=== PATIENT | male | born 1975 | race Caucasian/White ===

== ENCOUNTER 2023-01-21 08:24 | Outpatient (CLI) | payer OTHER, SELFPAY ==
--- NOTE | 2023-01-21 08:01 | W.ANESCHARGE ---
Anesthesia Charges Start Date/Time Anesthesia Start Date: 01/21/23 Anesthesia Start Time: 09:33 Stop Date/Time Anesthesia Stop Date: 01/21/23 Anesthesia Stop Time: 10:22
--- NOTE | 2023-01-21 10:27 | W.ANESCHARGE ---
Anesthesia Charges Start Date/Time Anesthesia Start Date: 01/21/23 Anesthesia Start Time: 09:33 Stop Date/Time Anesthesia Stop Date: 01/21/23 Anesthesia Stop Time: 10:22
== END 2023-01-21 08:25 | disposition home or self-care (01) ==
PROVIDERS: PCP Student in an Organized Health Care Education/Training Program; Visit Provider Internal Medicine Gastroenterology
DX: D50.9 Iron deficiency anemia, unspecified (principal); K62.1 Rectal polyp; Z98.0 Intestinal bypass and anastomosis status
CPT/HCPCS: 00813; 43239; 45385; 88305; J2704

== ENCOUNTER 2024-06-10 20:03 | Outpatient (CLI) | payer OTHER, SELFPAY | END 2024-06-10 20:04 | disposition home or self-care (01) | LOC: AMB 06-24 18:30 | PROVIDERS: PCP Student in an Organized Health Care Education/Training Program; Visit Provider Emergency Medicine | DX: R55 Syncope and collapse (principal); R41.82 Altered mental status, unspecified | CPT/HCPCS: A0425; A0427 ==

== ENCOUNTER 2024-06-10 20:37 | Observation (INO) | payer OTHER, SELFPAY ==
[2024-06-10] VITALS (15 sets, daily range): BP systolic 90–128; BP diastolic 47–83; PULSE 67–99; RESP 15–20; TEMP 36.6; O2SAT 91–97
--- NOTE | 2024-06-10 20:39 | CRLHL7_ITS ---
For Patients: As a result of the Century Cures Act, medical imaging exams and procedure reports are released immediately into your electronic medical record. You may view this report before your referring provider. If you have questions, please contact your health care provider. INDICATION: Unresponsive, disoriented, slurred speech. TECHNIQUE: CT head without contrast. COMPARISON: None. FINDINGS: Cerebral parenchyma: No evidence of acute territorial infarct. No acute intraparenchymal hemorrhage. No significant mass effect/midline shift. Normal crain-white matter differentiation. Extra-axial spaces: No extra-axial collection or hemorrhage. Ventricles: Unremarkable. Calvarium: Intact. Visualized paranasal sinuses/mastoid air cells: Mild pansinusitis. Posterior fossa: No cerebellar tonsillar herniation. Visualized orbits: No acute abnormality. IMPRESSION: No evidence of acute territorial infarct. No acute intracranial abnormality. Please note that all CT scans at this facility use dose modulation, iterative reconstruction, and/or weight-based dosing when appropriate to reduce radiation dose to as low as reasonably achievable. Dictated by Trang Chen MD @ 06/10/2024 8:59:44 PM (Electronically Signed)
--- OUTSIDE RECORDS SUMMARY | 2024-06-10 20:39 | XMS_ITS | Clinical Summary ---
Author Organization [employer] [facility] Address [place], [place] [address] Care Team Providers Care Pediatric Care Coordinator Name Role Phone Jairon Duncan MD Unavailable [phone] Wilfrid Pratt MD Unavailable Ana Dewitt PsyD, JADE Unavailable [phone] Vale Luo MD Unavailable Unavailable Rosie Padilla Primary Care Provider [phone] Allergies Active Allergy Reactions Criticality Noted Date Comments Nsaids (Non-Steroidal Anti-Inflammatory Drug) *Unknown 04/17/2011 H/o Laproscopic Manfred-N-Y ==> AVOID NSAIDs and aspirin due to risk of G-J anastomotic ulcers. If Cem must be on short course of NSAIDs or aspirin, use enteric coated if possible and use PPI // Vale Luo MD, bariatrician, [facility] 05/05/2016 Medications multivitamin (MVI) tablet Take 1 tablet by mouth once daily. 1 Active Calcium Citrate-Vitamin D3 500-200 mg-unit chewable tablet Take 2 tablets by mouth once daily. 0 2 Active Fe Fum-Vit C-Vit B12-FA 460-60-0.01-1 mg capIndications:Int estinal malabsorption following gastrectomy Take 1 Tab by mouth once daily. 60 Cap 8 Active CPAPIndications:OS A (obstructive sleep apnea) CPAP machine for home use at pressure 4-11 cmw with epr of 2, nasal mask x1/3month with nasal cushion x2/mo 1 Each 11 2 Active zinc gluconate 50 mg tablet Take 1 Tablet (50 mg) by mouth once daily. 0 3 Active cyanocobalamin (Vitamin B-12) 1,000 mcg tablet Take 5 Tablets (5,000 mcg) by mouth once daily. 90 Tablet 3 3 Active iron,carbonyl-nikolai min C (Vitron-C) 65 mg iron- 125 mg Delayed-Release tabletIndications: History of Manfred-en-Y gastric bypass Take 1 Tablet by mouth once daily. 90 Tablet 3 3 Active albuterol HFA (PRO-AIR; VENTOLIN; PROVENTIL) 90 mcg/actuation inhalerIndications :Mild intermittent asthma without complication Inhale 1-2 Puffs by mouth every 4 hours if needed for Shortness Of Breath or Wheezing. 1 Each 1 4 Active lisinopriL (PRINIVIL; ZESTRIL) 10 mg tabletIndications: Primary hypertension Take 1 Tablet (10 mg) by mouth once daily. 90 Tablet 3 4 Active ferrous sulfate 325 mg delayed release tabletIndications: History of Manfred-en-Y gastric bypass,Other iron deficiency anemia Take 1 Tablet (325 mg) by mouth two times daily with meals. 180 Tablet 2 4 Active Active Problems Patient Care Coordination No te Formatting of this note migh t be different from the original. 04/17/2011 MONIKA Duncan 392# (71.1; bmi 54.5) Problem Noted Date Diagnosed Date Primary hypertension 12/09/2023 B12 deficiency 12/14/2022 Iron deficiency 05/06/2018 Panic disorder without agoraphobia 05/05/2015 History of Manfred-en-Y gastric bypass 04/17/2011 Sloane Duncan 04/17/2011 Overview (05/05/2016): s/p MONIKA 04/17/[address] Duncan at [place] (initially 10/19/10: 398.2 lbs, BMI 55.1) Intestinal malabsorption following gastrectomy 1 06/17/2010 Overview (05/05/2016): s/p LRNY 04/17/[address] Duncan at [place] (initially 10/19/10: 398.2 lbs, BMI 55.1) KERLINE 2002, AHI-36; study done at [facility] 2010 Overview (05/05/2016): KERLINE diagnosed 2002 at [facility] AHI-36 Vitamin D deficiency 11/07/2010 Hypertriglyceridemia 11/06/2010 Overview (05/05/2016): mild Allergic rhinitis, cause unspecified 11/06/2010 Intermittent asthma 07/28/2007 Morbid obesity with BMI of 50.0-59.9, adult Overview (05/07/2016): s/p LRNY 04/17/[address] Duncan at [place] (initially 10/19/10: 398.2 lbs, BMI 55.1) - 10/19/10: Intake at [facility] - 35 y/o - 398.2 lbs, BMI 55.1 - comorbidities: KERLINE History: - overweight started 10 y/o; weight gain pattern: gradual over time - weight loss attempts: non-supervised exercise RD visits weight loss surgery RNY 04/17/11 - Past Meds: NONE Resolved Problems Problem Noted Date Diagnosed Date Resolved Date Seasonal allergic conjunctivitis 11/06/2010 11/06/2010 Essential hypertension, benign 02/16/2008 05/12/2012 Overview (05/05/2016): Resolved after gastric bypass Unspecified asthma(493.90) 07/28/2007 1 06/11/2010 Unspecified sleep apnea 04/29/200701/25 Encounters Date Type Department Care Team Description 04/27/2024 9:40 AM EDUCATION COURSES SALES REPRESENTATIVE Telemedicine [facility] [address] [address] Michelle Carias PA Telehealth (Ongoing sinus symptoms) 04/27/2024 Travel 03/25/2024 5:00 PM CDT Telemedicine [facility] [address] [place] [address] Omar Marin, PhD, Telehealth 03/24/2024 Travel from Last 3 Months Immunizations Name Administration Dates Next Due AMB Influenza, IIV4 PF (=>6 mos Flulaval,Fluzone Fluarix)(Flu Clinic Only) 03/24/2016 Influenza A (H1N1), Inactivated 06/27/2009 Influenza Virus, Unspecified 03/09/2011 Influenza, IIV3 (Age >=3 years) 02/20/2013,06/06 Influenza, IIV4 04/17/2022,04/22/2018,04/06/2015 Td, Preservative Free (age >= 7 Years) 5 Tdap 09/07/2022,05/07/2013 Family History Medical History Relation Name Comments Cancer-colon Father Jul 09 201 8. Diabetes Father Hyperlipidemia Father Hypertension Father Obesity Father Heart Disease Maternal Grandfather early age- heavy smoker Stroke Maternal Grandfather Cancer Maternal Grandmother thyroid Hyperlipidemia Maternal Grandmother Blood Disease Mother maternal bleed ing or clotting disorder noted on Bariatric Health History GI Disease Mother Hyperlipidemia Mother Hypertension Mother Obesity Mother morbid obesity Heart attack Paternal Grandfather Hyperlipidemia Paternal Grandfather Hypertension Paternal Grandfather Blood Disease Paternal Grandmother bleedi ng or clotting disorder noted on Bariatric Health History Diabetes Paternal Grandmother Heart Disease Paternal Grandmother Stroke Paternal Grandmother Good Health Sister 1 Cancer-breast Sister 2 Heart Disease Sister 2 from chemother apy Hodgkin's lymphoma Sister 2 Relation Name Status Comments Daughter 1 Alive Daughter 2 Alive Father Maternal Grandfather (Age 72) Maternal Grandmother (Age 72) ca ncer Mother Alive Paternal Grandfather (Age 49) he art attack Paternal Grandmother (Age 80) st beard Sister 1 Alive Sister 2 Son Alive Social History Tobacco Use Types Packs/Day Years Used Date Smoking Tobacco: Never Smokeless Tobacco: Never Tobacco Cessation:Counseling Given: Yes Alcohol Use Standard Drinks/Week Comments Yes 0 (1 standard drink = 0.6 oz pur e alcohol) rare [facility] Utilities Answer Date Recorded Do you have trouble paying f or utilities (for example, heat, electricity, water, phone)? Yes 11/04/2023 PHQ-2 Answer Date Recorded PHQ-2 TOTAL SCORE 1 03/25/2024 Social Connections Answer Date Recorded Do you often feel lonely or isolated from those around you? 0 11/04/2023 Financial Resource Strain Answer Date R ecorded Difficulty of Paying Living Expenses 3 11/04/2023 Difficulty of Paying Living Expenses Not on file 11/04/2023 Food Insecurity Answer Date Recorded Do you worry your food will run out before you are able to buy more? 1 11/04/2023 Transportation Needs Answer Date Record ed Does lack of transportation keep you from medica l appointments? 1 11/04/2023 Does lack of transportation keep you from work, meetings or getting things that you need? 1 11/04/2023 Housing Stability Answer Date Recorded What is your housing situation today? 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 Not on file Not on yeimy e Obstetrics History Last Filed Vital Signs Vital Sign Reading Time Taken Comments Blood Pressure 134/88 02/28/2024 7:48 AM CDT Pulse 56 02/28/2024 7:48 AM CDT Temperature 37.1 C (98.7 F) 08/04/2018 1:16 PM CDT Respiratory Rate 18 05/06/2018 3:00 PM EDUCATION COURSES SALES REPRESENTATIVE Oxygen Saturation 96% 02/28/2024 7:48 AM CDT Inhaled Oxygen Concentration - - Weight 172.5 kg (380 lb 3.2 oz) 12/09/2023 8:22 AM CDT Height 182.9 cm (6') 12/09/2023 8:22 AM CDT Body Mass Index 51.56 12/09/2023 8:22 AM CDT Plan of Treatment Upcoming Encounters Date Type Department Care Team (Late st Contact Info) Description 06/22/2024 2:30 PM EDUCATION COURSES SALES REPRESENTATIVE Telemedicine [facility] [address] [place], [place] [id number] Kelly Jones, [facility] [address], [place] [id number] Health Maintenance Due Date Last Done Comments Pneumococcal series for age 50+ (1 of 1 - PCV) 2023 Zoster (shingles) series for age 50+ (1 of 2) 2023 COVID-19 vaccine series (2 - season) 2024 01/25/2021 Influenza for age 50-64 01/26/2024 04/17/20, 04/22/2018, 03/24/2016, Additional history exists BMI (ht and wt on same day) for age 18+ 12/08/2024 12/09/2023, 11/04/2023, 09/07/2022, Additional history exists Depression screening for age 12+ 03/25/2025 03/25/2024, 03/06/2024, 03/04/2024, Additional history exists Lipids for age 45-75 11/03/2028 11/04/2023, 09/07/2022, 04/22/2018, Additional history exists Tetanus booster 09/07/2032 09/07/2022, 04/26, 11/07/2010 (Completed outside of [facility]), Additional history exists Colonoscopy through age 75 01/21/2033 01/21/2023, HIV for age 15-65 Completed 09/07/2022 Hepatitis C screening for ag e 18-79 Completed 09/07/2022 Tdap Completed 09/07/2022, 05/07/2013 Medical Devices Implanted Type Area Oil Paint Shader Device Identifier Shelf Expiration Date Model / Serial / Lot Seamguard Reinforcement [id number] - [id number] Implanted:Qty: 2 on 04/17/2011 at [facility] N/A: Stomach [employer] [id number] # / / [id number] Procedures Procedure Name Priority Date/Time Associated Diagnosis Comments LIPID PANEL W REFLEX MEASURED LDL Routine 11/04/2023 8:07 AM CDT Encounter for screening for lipoid disorders COLONOSCOPY SCREENING Routine 01/21/2023 12:00 AM CDT Iron deficiency anemia, unspecified iron deficiency anemia type LC HIV-1/O/2, 4TH GENERATION Routine 09/07/2022 8:42 AM CDT Encounter for screening for HIV LC HCV ANTIBODY RFX TO QUANT PCR Routine 09/07/2022 8:42 AM CDT Need for hepatitis C screening test from Last 3 Months or Most Recently Relevant to Health Maintenance Results * (ABNORMAL) LIPID PANEL W REFLEX MEASURED LDL [[id number]] (11/04/2023 8:07 AM CDT) CHOLESTEROL,TOTAL 149 100 - 199 mg/dL 11/04/2023 3:41 PM CDT [facility] Comment: Cholesterol, Total Reference Ranges Desirable <200 mg/dL Borderline 200-239 mg/dL High >=240 mg/dL TRIGLYCERIDES 155(H) <150 mg/dL 11/04/2023 3:41 PM CDT [facility] HDL CHOLESTEROL 44 >40 mg/dL 3:41 PM CDT [facility] NON-HDL CHOLESTEROL 105 <145 mg/dl 11/04/2023 3:41 PM CDT [facility] CHOL/HDL RATIO 3.39 <4.50 11/04/2023 3:41 PM CDT [facility] LDL CHOLESTEROL 74 <=130 mg/dL 11/04/2023 3:41 PM CDT [facility] VLDL CHOLESTEROL 31(H) <=30 mg/dL 11/04/2023 3:41 PM CDT [facility] PROVIDER ORDERED STATUS RANDOM 11/04/2023 3:41 PM CDT [facility] Blood BLOOD SPECIMEN / Unknown Venipuncture / Unknown 11/04/2023 8:07 AM CDT 11/04/2023 8:10 AM CDT Rosie MALDONADO CHEMISTRY Final Res ult [facility] [address] [place] [address], * COLONOSCOPY SCREENING (01/21/2023 12:00 AM CDT) Michelle MALDONADO GI PROCEDURE ORD Final Res ult * LC HCV ANTIBODY RFX TO QUANT PCR (09/07/2022 8:42 AM CDT) HCV Ab Non Reactive Non Reactive 09/11/2022 3:07 AM CDT [facility] ([facility]) Blood BLOOD SPECIMEN / Unknown Venipuncture / Unknown 09/07/2022 8:42 AM CDT 09/07/2022 8:45 AM CDT [facility] ([facility]) - 09/11/2022 3:07 AM CDT Performed at: [address] [place] [id number] Benefit Specialist: Tony Campbell MD, Phone: [phone] us Michelle MALDONADO LABORATORY Final Resu lt Performing Organization Address [facility] Co de Phone Number [facility] ([facility]) [address] [place] [address] * HIV-1/O/2, 4TH GENERATION (09/07/2022 8:42 AM CDT) Pathologist [facility] HIV Scr 4th Gen Non Reactive Non Reactive 09/11/2022 5:08 AM CDT [facility] ([facility]) Comment: HIV Negative HIV-1/HIV-2 antibodies and HIV-1 p24 antigen were NOT detected. There is no laboratory evidence of HIV infection. Blood BLOOD SPECIMEN / Unknown Venipuncture / Unknown 09/07/2022 8:42 AM CDT 09/07/2022 8:45 AM CDT [facility] TEST[facility] ([facility]) - 09/11/2022 5:08 AM CDT Performed at: [address] [place] [id number] Benefit Specialist: Tony Campbell MD, Phone: [phone] us Michelle MALDONADO LABORATORY Final Resu lt Performing Organization Address [facility] Co de Phone Number [facility] ([facility]) [address] [place] [address], from Last 3 Months or Most Recently Relevant to Health Maintenance Insurance [employer] Advance Directives * Full Code (Latest Code Status on File) Date Activated Date Inactivated Comments 04/17/2011 2:40 AM 04/19/2011 2:29 PM Care Teams Pediatric Care Coordinator Relationship Specialty Start Date End Date Rosie Padilla PA [address] [place] [address] PCP - General Physician Implement Mechanic 12/19/22 Jairon Duncan MD Consulting Physician Bariatric Surgeon 04/17/11 Wilfrid Pratt MD [address] [place] [address] Consulting Physician Internal Medicine 10/25/10 Ana Dewitt PsyD, LP [address] [facility] [address] [place] [address] Consulting Physician Licensed Psychologist 02/24/15 Vale Luo MD [address] [facility] [address] [place] [address] Consulting Physician Family Practice 05/07/16
[2024-06-10] MEDS: droperidoL 2.5 MG/ML inj IV (21:00)
--- NOTE | 2024-06-10 21:01 | PC.NURSE ---
Stroke code was called by EMS. Patient was stable to go directly to CT. Neurology was paged at 2054, call was returned. Dr. Olmedo notified neurology was paged.
--- NOTE | 2024-06-10 21:17 | CRLHL7_ITS ---
For Patients: As a result of the Century Cures Act, medical imaging exams and procedure reports are released immediately into your electronic medical record. You may view this report before your referring provider. If you have questions, please contact your health care provider. INDICATION: Acute stroke. TECHNIQUE: CTA head with contrast bolus tracking, 3D angiographic rendering using maximum intensity projection (MIP) and images permanently archived. FINDINGS: There is normal opacification of the intracranial vasculature. There is no large vessel occlusion. No aneurysm is identified. Fluid is noted in the paranasal sinuses. IMPRESSION: No acute intracranial abnormality at CTA. Please note that all CT scans at this facility use dose modulation, iterative reconstruction, and/or weight-based dosing when appropriate to reduce radiation dose to as low as reasonably achievable. Dictated by Jimenez Garrett MD @ 06/11/2024 7:56:48 AM (Electronically Signed)
--- NOTE | 2024-06-10 21:17 | CRLHL7_ITS ---
For Patients: As a result of the Century Cures Act, medical imaging exams and procedure reports are released immediately into your electronic medical record. You may view this report before your referring provider. If you have questions, please contact your health care provider. INDICATION: Acute stroke. TECHNIQUE: CTA neck with contrast bolus tracking, 3D angiographic rendering using maximum intensity projection (MIP) and images permanently archived. FINDINGS: There is no significant carotid artery stenosis or dissection. There is no significant vertebral artery stenosis or dissection. The soft tissues of the neck are within normal limits. The cervical spine is in normal alignment. IMPRESSION: Unremarkable neck CTA. No significant carotid or vertebral artery stenosis or dissection. Please note that all CT scans at this facility use dose modulation, iterative reconstruction, and/or weight-based dosing when appropriate to reduce radiation dose to as low as reasonably achievable. Dictated by Jimenez Garrett MD @ 06/11/2024 7:57:41 AM (Electronically Signed)
[2024-06-10 21:22] LABS: Chloride* 107 mmol/L (96-114); Potassium* 4.1 mmol/L (3.6-5.1); Sodium* 142 mmol/L (135-149)
[2024-06-10 21:23] LABS: Basophils Absolute Auto 0.01 K/uL (0.00-0.30); Basophils Percent Auto 0.2 % (0.0-3.0); Eosinophils Absolute Auto 0.07 K/uL (0.00-0.50); Eosinophils Percent Auto 1.2 % (0.0-7.0); Hematocrit 48.3 % (37.0-53.0); Hemoglobin* 16.8 gm/dL (13.5-17.5); Immature Granulocytes Abs Auto 0.03 K/uL (0.00-0.30); Immature Granulocytes Pct Auto 0.5 %; Lymphocytes Absolute Auto 2.46 K/uL (0.90-2.90); Mean Corpuscular HGB Conc 35 gm/dL (32-36); Mean Corpuscular Hemoglobin 31 pg (26-34); Mean Corpuscular Volume 88 fL (80-100); Monocytes Percent Auto 11.6 % (0.0-11.0); Neutrophils Absolute Auto 2.61 K/uL (1.7-7.0); Neutrophils Percent Auto 44.5 % (42.0-72.0); Platelet Count* 206 K/uL (140-440); RDW Coefficient of Variation % 12.8 % (11.5-15.5); Red Blood Count 5.49 m/uL (4.30-5.90); White Blood Count* 5.86 K/uL (4.50-11.00)
[2024-06-10 21:24] LABS: Slide Review Reflex No
[2024-06-10 21:25] LABS: Anion Gap 14 mEq/L (7-15); Blood Urea Nitrogen* 10 mg/dL (7-30); Carbon Dioxide* 21 mmol/L (20-32); Creatinine* 0.7 mg/dL (0.5-1.5); Estimated Glomerular Filt Rate 112 ml/min
[2024-06-10 21:26] LABS: Calcium* 8.8 mg/dL (8.4-10.6); Glucose* 135 mg/dL (60-115)
[2024-06-10 21:26] LABS: INR 0.91 (0.91-1.10); Partial Thromboplastin Time* 27 Seconds (23-33); Prothrombin Time 12.8 Seconds
[2024-06-10 21:31] LABS: HCO3 VBG 23 mmol/L (21-28); PCO2 VBG 38 mmHG (40-50); PO2 VBG 77.2 mmHG (25-47); pH VBG 7.398 (7.32-7.43)
[2024-06-10 21:51] LABS: Ethanol* 0.01 % (0.01-0.03); Troponin I* < 0.01 ng/mL (0.01-0.04)
--- OUTSIDE RECORDS SUMMARY | 2024-06-10 22:02 | XMS_ITS | Clinical Summary ---
Author Organization [employer] [facility] [employer] [facility] Address [place], [place] [address] Care Team Providers Care Wire Mesh Gate Assembler Name Role Phone Jairon Duncan MD Unavailable [phone] Wilfrid Pratt MD Unavailable Ana Dewitt PsyD, JADE Unavailable [phone] Vale Luo MD Unavailable Unavailable Rosie Padilla Primary Care Provider [phone] Allergies Active Allergy Reactions Criticality Noted Date Comments Nsaids (Non-Steroidal Anti-Inflammatory Drug) *Unknown 04/17/2011 H/o Laproscopic Manfred-N-Y ==> AVOID NSAIDs and aspirin due to risk of G-J anastomotic ulcers. If Cem must be on short course of NSAIDs or aspirin, use enteric coated if possible and use PPI // Vale Luo MD, bariatrician, [facility] 05/05/2016 Medications multivitamin (MVI) tablet Take [...] s/p MONIKA 04/17/[address] Duncan at [place] (initially 10/19/10: 398.2 lbs, BMI 55.1) Intestinal malabsorption following gastrectomy 1 06/17/2010 Overview (05/05/2016): s/p LRNY 04/17/[address] Duncan at [place] (initially 10/19/10: 398.2 lbs, BMI 55.1) KERLINE 2002, AHI-36; study done at [facility] 2010 Overview (05/05/2016): KERLINE diagnosed 2002 at [facility] AHI-36 Vitamin D deficiency 11/07/2010 Hypertriglyceridemia 11/06/2010 Overview (05/05/2016): mild Allergic rhinitis, cause unspecified 11/06/2010 Intermittent asthma 07/28/2007 Morbid obesity with BMI of 50.0-59.9, adult Overview (05/07/2016): s/p LRNY 04/17/[address] Duncan at [place] (initially 10/19/10: 398.2 lbs, BMI 55.1) - 10/19/10: Intake at [facility] - 35 y/o - 398.2 [...] Encounters Date Type Department Care Team Description 06/10/2024 Office Visit [facility] [address] [place] [address] Germania Peterson MD 04/27/2024 9:40 AM SECURITY ADMINISTRATOR Telemedicine [facility] [address] [place] [address] Michelle Carias PA Telehealth (Ongoing sinus symptoms) 04/27/2024 Travel 03/25/2024 5:00 PM CDT Telemedicine [facility] [address] [place] [address] Omar Marin, PhD, LP Telehealth 03/24/2024 Travel from Last 3 Months [...] art attack Paternal Grandmother (Age 80) st [place] Sister 1 Alive Sister 2 Son Alive Social History Tobacco Use Types Packs/Day Years Used Date Smoking Tobacco: Never Smokeless Tobacco: Never Tobacco Cessation:Counseling Given: Yes Alcohol Use Standard Drinks/Week Comments Yes 0 (1 standard drink = 0.6 oz pur e alcohol) rare 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 file Not on yeimy e Obstetrics History Last Filed Vital Signs Vital Sign Reading Time Taken Comments Blood Pressure 134/88 02/28/2024 7:48 AM CDT Pulse 56 02/28/2024 7:48 AM CDT Temperature 37.1 C (98.7 F) 08/04/2018 1:16 PM CDT Respiratory Rate 18 05/06/2018 3:00 PM SECURITY ADMINISTRATOR Oxygen Saturation 96% 02/28/2024 7:48 AM CDT Inhaled Oxygen Concentration - - Weight 172.5 kg (380 lb 3.2 oz) 12/09/2023 8:22 AM CDT Height 182.9 cm (6') 12/09/2023 8:22 AM CDT Body Mass Index 51.56 12/09/2023 8:22 AM CDT Plan of Treatment Upcoming Encounters Date Type Department Care Team (Late st Contact Info) Description 06/22/2024 2:30 PM SECURITY ADMINISTRATOR Telemedicine [facility] [address] [place], [place] [id number] Kelly Jones, [facility] [address] [place] [address] Health Maintenance Due Date Last Done Comments [...] 09/07/2032 09/07/2022, 04/26, 11/07/2010 (Completed outside of [facility]), Additional history exists Colonoscopy through age 75 01/21/2033 01/21/2023, HIV for age 15-65 Completed 09/07/2022 Hepatitis C screening for ag e 18-79 Completed 09/07/2022 Tdap Completed 09/07/2022, 05/07/2013 Medical Devices Implanted Type [employer] Inspector Device Identifier Shelf Expiration Date Model / Serial / Lot Seamguard Reinforcement [id number] - [id number] Implanted:Qty: 2 on 04/17/2011 at [facility] N/A: Stomach [employer] [id number] / / [id number] Procedures Procedure Name Priority Date/Time Associated Diagnosis [...] (ABNORMAL) LIPID PANEL W REFLEX MEASURED LDL [[id number]] (11/04/2023 8:07 AM CDT) CHOLESTEROL,TOTAL 149 100 - 199 mg/dL 11/04/2023 3:41 PM CDT [facility] Comment: Cholesterol, Total Reference Ranges Desirable <200 mg/dL Borderline 200-239 mg/dL High >=240 mg/dL TRIGLYCERIDES 155(H) <150 mg/dL 11/04/2023 3:41 PM CDT [facility] HDL CHOLESTEROL 44 >40 mg/dL 3:41 PM CDT [facility] NON-HDL CHOLESTEROL 105 <145 mg/dl 11/04/2023 3:41 PM CDT [facility] CHOL/HDL RATIO 3.39 <4.50 11/04/2023 3:41 PM CDT [facility] LDL CHOLESTEROL 74 <=130 mg/dL 11/04/2023 3:41 PM CDT [facility] VLDL CHOLESTEROL 31(H) <=30 mg/dL 11/04/2023 3:41 PM CDT [facility] PROVIDER ORDERED STATUS RANDOM 11/04/2023 3:41 PM CDT [facility] Blood BLOOD SPECIMEN / Unknown Venipuncture / Unknown 11/04/2023 8:07 AM CDT 11/04/2023 8:10 AM CDT us Rosie MALDONADO CHEMISTRY Final Res ult [facility] [address] [place] [address], * COLONOSCOPY SCREENING (01/21/2023 12:00 AM CDT) Michelle MALDONADO GI PROCEDURE ORD Final Res ult * LC HCV ANTIBODY RFX TO QUANT PCR (09/07/2022 8:42 AM CDT) HCV Ab Non Reactive Non Reactive 09/11/2022 3:07 AM CDT [facility] ([facility]) Blood BLOOD SPECIMEN / Unknown Venipuncture / Unknown 09/07/2022 8:42 AM CDT 09/07/2022 8:45 AM CDT Narrative [facility] ([facility]) - 09/11/2022 3:07 AM CDT Performed at: [facility] [employer] [id number] Precision Grinder: Tony Campbell MD, Phone: [phone] Michelle MALDONADO LABORATORY Final Resu lt [facility] ([facility]) [address] [place] [address], * LC HIV-1/O/2, 4TH GENERATION (09/07/2022 8:42 AM CDT) HIV Scr 4th Gen Non Reactive Non Reactive 09/11/2022 5:08 AM CDT [facility] ([facility]) Comment: HIV Negative HIV-1/HIV-2 antibodies and HIV-1 p24 antigen were NOT detected. There is no laboratory evidence of HIV infection. Blood BLOOD SPECIMEN / Unknown Venipuncture / Unknown 09/07/2022 8:42 AM CDT 09/07/2022 8:45 AM CDT Narrative [facility] ([facility]) - 09/11/2022 5:08 AM CDT Performed at: [facility] [facility] [place] [id number] Precision Grinder: Tony Campbell MD, Phone: [phone] us Michelle MALDONADO LABORATORY Final Resu lt [facility] ([facility]) [facility] [place] [address], [place] from Last 3 Months or Most Recently Relevant to Health Maintenance Insurance [employer] Advance Directives * Full Code (Latest Code Status on File) Date Activated Date Inactivated Comments 04/17/2011 2:40 AM 04/19/2011 2:29 PM Care Teams Wire Mesh Gate Assembler Relationship Specialty Start Date End Date Rosie Padilla PA [address] [place] [address] PCP - General Physician Maintenance Technician 2Nd Shift 12/19/22 Jairon Duncan MD Consulting Physician Bariatric Surgeon 04/17/11 Wilfrid Pratt MD [address] [place] [address] Consulting Physician Internal Medicine 10/25/10 Ana Dewitt PsyD, LP [address] [place] [address] Consulting Physician Licensed Psychologist 02/24/15 Vale Luo MD [address] [place] [address] Consulting Physician Family Practice 05/07/16
[2024-06-10 22:10] LABS: PCR FLU A Negative PCR FLU A (Negative); PCR FLU B Negative PCR FLU B (Negative); PCR RSV Negative PCR RSV (Negative); SARS PCR* POSITIVE SARS-CoV-2 (Negative)
[2024-06-10] MEDS: ASPIRIN 81 MG TAB.CHEW 324 MG PO (23:25)
--- NOTE | 2024-06-10 23:45 | P.IMHP_ITS ---
Hospitalist- H&P: HPI History of Present Illness Date Seen: 06/10/24 Chief complaint: Stroke symptoms Narrative: Cem Katz is a 48 year old male past medical history significant for hypertension, hyperlipidemia, KERLINE on CPAP, anemia, PTSD, vitamin B12 and D deficiencies is admitted to the medical floor from the ED for further workup syncope and altered mental status. Patient is seen with at bedside. Awake, alert but does appear tired and reports feeling the same. Most of his answers are ?no? at this time but is able to elaborate when needed. does assist with answering some of these questions. Patient is reported to be last known well around 10:00 a.m. earlier this morning. 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 Reports feeling his normal self. His arrived home around 5:45 p.m. and found him sleeping in his chair without his CPAP on. When she woke him he noticed he had some slurred speech. She does tell me this has happened a handful of times over the past year. Patient tells me he felt like maybe he had a sinus headache so got up to the bathroom and was walking fine. At approximately 7:30 p.m. he was noticed to be unsteady on his feet and was heard to fall over. Found unresponsive. Noted to be perseverating in the ED. combative in the ED, received IV droperidol. reports he has had a previous syncopal episode in June/July of 2023. He had minimal outpatient workup at that time. His tells me his iron and B12 levels were off. No workup since that time. Currently, patient denies headache or dizziness. Denies recent fevers or chills over the last few days. Denies recent chest pain or shortness of breath. Denies abdominal pain or vomiting. He did have diarrhea on Saturday. His daughter had been vomiting previously. His suspects norovirus. Previous alcohol use. Sober since January. Nonsmoker. Denies new or recent medication changes. PCP is ERICA Waller. Review of Systems Narrative: REVIEW OF SYSTEMS: Complete review of systems performed and negative unless otherwise stated in HPI or below. [facility] Medical History (Updated 06/11/24 @ 00:13 by Savnana Amaya PA-C) KERLINE (obstructive sleep apnea) ?G47.33 - Obstructive sleep apnea (adult) (pediatric) (ICD-10) Alcohol use disorder in remission ?F10.91 - Alcohol use, unspecified, in remission (ICD-10) Panic disorder without agoraphobia ?F41.0 - Panic disorder [episodic paroxysmal anxiety] (ICD-10) Vitamin B12 deficiency ?E53.8 - Deficiency of other specified B group vitamins (ICD-10) Vitamin D deficiency ?E55.9 - Vitamin D deficiency, unspecified (ICD-10) Hypertriglyceridemia ?E78.1 - Pure hyperglyceridemia (ICD-10) Hypertension ?I10 - Essential (primary) hypertension (ICD-10) Surgical History (Updated 06/11/24 @ 00:13 by Savanna Amaya PA-C) History of Manfred-en-Y gastric bypass ?Z98.84 - Bariatric surgery status (ICD-10) Meds Home Medications and Allergies Allergies Allergy/AdvReac Type Severity Reaction Status Date / Time No Known Drug Allergies Allergy Verified 01/21/23 10:12 Exam Narrative: Exam Narrative: PHYSICAL EXAM General: Alert, appears tired, otherwise NAD HEENT: Normocephalic, atraumatic, sclera white, EOMI, oral mucosa moist Cardiovascular: RRR, S1S2. No pitting edema Pulmonary: CTA bilaterally without rhonchi, rales, expiratory wheezes. No dyspnea on 1 L per N/C Abdominal: Soft, nondistended, NTTP Neurological: Alert, answering questions appropriately, cranial nerves intact, muscle strength equal bilaterally upper lower extremities, no focal findings on my exam currently Extremities: No gross joint deformity or swelling. AROMI. Neurovascularly intact Skin: Warm, dry. Const: Vital Signs, click to edit/add: Vital Signs - 24 hr 06/10/24 20:41 06/10/24 20:50 06/10/24 20:51 Temperature 97.9 F Pulse Rate 83 Pulse Rate [Pulse Oximeter] 86 Respiratory Rate 20 Blood Pressure Blood Pressure [Ri ght Upper Arm] 120/76 Pulse Oximetry 95 95 94 Oxygen Delivery Me thod Room Air Room Air Oxygen Flow Rate 06/10/24 20:52 06/10/24 21:02 06/10/24 21:03 Temperature Pulse Rate 99 86 Pulse Rate [Pulse Oximeter] Respiratory Rate Blood Pressure 115/75 128/83 Blood Pressure [Ri ght Upper Arm] Pulse Oximetry 92 97 Oxygen Delivery Me thod Room Air Room Air Room Air Oxygen Flow Rate 06/10/24 21:15 06/10/24 21:17 06/10/24 21:33 Temperature Pulse Rate 73 70 67 Pulse Rate [Pulse Oximeter] Respiratory Rate 17 Blood Pressure 116/79 112/60 Blood Pressure [Ri ght Upper Arm] Pulse Oximetry 92 92 91 Oxygen Delivery Me thod Nasal Cannula Nasal Cannula Nasal Cannula Oxygen Flow Rate 1 1 1 06/10/24 21:45 06/10/24 21:47 06/10/24 22:02 Temperature Pulse Rate 75 70 Pulse Rate [Pulse Oximeter] Respiratory Rate 15 17 Blood Pressure 92/55 L 108/65 Blood Pressure [Ri ght Upper Arm] Pulse Oximetry 91 92 93 Oxygen Delivery Me thod Nasal Cannula Nasal Cannula Nasal Cannula Oxygen Flow Rate 1 1 1 06/10/24 22:21 06/10/24 23:00 06/10/24 23:19 Temperature Pulse Rate 70 76 98 Pulse Rate [Pulse Oximeter] Respiratory Rate 17 18 17 Blood Pressure 90/47 L 120/82 Blood Pressure [Ri ght Upper Arm] Pulse Oximetry 94 93 96 Oxygen Delivery Me thod Nasal Cannula Nasal Cannula Oxygen Flow Rate 1 1 Hospitalist - H&P: Result Labs Labs: Short CBC 06/10/24 Range/Units 20:39 WBC 5.86 (4.50-11.00) K/uL Hgb 16.8 (13.5-17.5) gm/dL Hct 48.3 (37.0-53.0) % Plt Count 206 (140-440) K/uL BMP 06/10/24 20:39 Sodium 142 Potassium 4.1 Chloride 107 Carbon Dioxide 21 BUN 10 Creatinine 0.7 Glucose 135 H Calcium 8.8 Cardiac Enzymes 06/10/24 Range/Units 20:39 Troponin I < 0.01 L (0.01-0.04) ng/mL Imaging CT scan - head: Attestation: I have reviewed the pertinent imaging results. Radiologist's impression: Cerebral parenchyma: No evidence of acute territorial infarct. No acute intraparenchymal hemorrhage. No significant mass effect/midline shift. Normal crain-white matter differentiation. Extra-axial spaces: No extra-axial collection or hemorrhage. Ventricles: Unremarkable. Calvarium: Intact. Visualized paranasal sinuses/mastoid air cells: Mild pansinusitis. Posterior fossa: No cerebellar tonsillar herniation. Visualized orbits: No acute abnormality. IMPRESSION: No evidence of acute territorial infarct. No acute intracranial abnormality. CTA head/neck: Attestation: I have reviewed the pertinent imaging results. Radiologist's impression: Preliminary read no sign of large vessel occlusion or significant aneurysm. No sign of dissection or significant stenosis Assessment and Plan Assessment and plan (1) Syncope: Problem comment: -occurred approximately 1930 p.m.. Unresponsive after the fall. No incontinence. Slurred speech. Combative. - reports previous syncopal episode in June/July of 2023 with limited outpatient workup -CT head without acute intracranial abnormalities -CTA head/neck with no sign of large vessel occlusion or significant aneurysm, no sign of dissection or significant stenosis -afebrile, no leukocytosis, glucose 135, troponin < 0.01, ETOH 0.01%, electrolytes stable, kidney function stable, COVID positive -added TSH, magnesium, CRP, UDS -ED provider discussed with Dr. Peterson, Teleneurology, recommending admission with further work up -MRI noncontrast brain -echo with bubble study -telemetry. I would recommend Ziopatch at time of discharge as well -neurochecks -bedside swallow eval -PT/OT/TOWNSHIP SUPERVISOR consults -lipids, A1c ordered -aspirin 325 mg daily, 1st dose given in ED -neurology follow-up in the morning -based on findings of pending workup consider outpatient neurology and cardiology follow-up Status: Acute (2) Altered mental status: Problem comment: -slurred speech after waking ( reports this has happened maybe a handful of times in the past year). Unresponsive without incontinence. Combative in ED. received droperidol so was difficult to arouse for short while -Symptoms improving prior to arrival to floor. Remains tired but is alert -tele neurology consulted, will low suspicion for stroke though need to rule out posterior circulation stroke. Question toxic metabolic encephalopathy or infection, possible seizure with postictal state -workup as above Status: Acute (3) COVID-19: Problem comment: -denies recent cough, congestion, fevers. One day history of diarrhea (suspected norovirus from child) -no hypoxia. On supplemental oxygen following droperidol administration in ED -Paxlovid - sent to pharmacy on file -symptomatic cares Status: Acute (4) Hypertension: Problem comment: -allow for permissive hypertension -hold home medication Status: Acute (5) Hypertriglyceridemia: Problem comment: -do not see that he is on a statin -lipids ordered Status: Acute (6) KERLINE (obstructive sleep apnea): Problem comment: -CPAP Status: Acute Total Time Spent Total Time Spent: Total time spent caring for the patient today was 75 minutes. This includes time spent for the visit reviewing the chart, time spent during the visit, time spent after the visit and documentation and planning in coordination of care.
[2024-06-11] VITALS (9 sets, daily range): BP systolic 122–181; BP diastolic 84–115; PULSE 66–94; RESP 12–18; TEMP 36.6–37.1; O2SAT 92–96; BMI 50.7
--- NOTE | 2024-06-11 00:54 | ED_ITS ---
HPI - General Adult General Date Seen: 06/11/24 Chief complaint: Neuro Symptoms/Altered Deficit Stated complaint: Stroke symptoms Time Seen by Provider: 06/10/24 20:45 History of Present Illness HPI narrative: 48-year-old male with a past medical history of hypertension, elevated BMI, but otherwise generally healthy. He is and lives at home with his and daughter. 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 notes that he did have a period of heavy alcohol intake for a couple of months last summer but she believes he has been completely sober from alcohol since around the time of labor day. The patient and his family have been sick for couple of days with a cough and some mild nasal congestion and facial pain. Patient was essentially normal this morning at 10:00 a.m. when his went to work. He works from home. She is far as his knows he was normal all day but she did not check on him. When his got home from work at 5:30 a.m. she saw evidence that he had been in the kitchen and had already cooked dinner for his family. However he had sat down and was resting in the easy chair. He was sleeping. When he got up later his daughter noted that he seemed a little bit unsteady. Also he was slurring his speech. His daughter thought he might have been drinking again, but his did not smell alcohol on his breath. A little after that his the family heard the patient fall and hit the floor and they responded to his side. They found him on the floor. He appeared uninjured but he was unresponsive. They called 911. Around the time paramedics and 1st responders arrived he was coming to but was agitated and aggressive. He was brought here by EMS. He did not require restraints on but they did call ahead advising us that the patient was agitated. Blood sugar was 142. Vitals were stable. By the time he got here he was more alert, but still quite agitated. He was tearful, slurring his speech, and somewhat upset, arguing with his that nothing happened and that she should not worry. He is not anticoagulated. Once I am able to get him to calm down a little bit he is able to answer some questions from me. He denies headache. He denies chest pain. He is not short of breath. He is not nauseous. He says his vision is normal. confirms that he is not anticoagulated. He has never had similar events. No history of seizure disorder. She does not think he has been drinking lately. No history of heart or lung disease. Related Data Previous Rx's ?Medication ?Instructions ?Recorded nirmatrelvir 300 mg (150 mg See Rx Instructions PO .COMPLEX 06/11/24 x2)-ritonavir 100 mg tablet,dose #30 ea pack (Paxlovid) Allergies Allergy/AdvReac Type Severity Reaction Status Date / Time No Known Drug Allergies Allergy Verified 01/21/23 10:12 [facility] Medical History (Updated 06/11/24 @ 00:13 by Savanna Amaya PA-C) KERLINE (obstructive sleep apnea) ?G47.33 - Obstructive sleep apnea (adult) (pediatric) (ICD-10) Alcohol use disorder in remission ?F10.91 - Alcohol use, unspecified, in remission (ICD-10) Panic disorder without agoraphobia ?F41.0 - Panic disorder [episodic paroxysmal anxiety] (ICD-10) Vitamin B12 deficiency ?E53.8 - Deficiency of other specified B group vitamins (ICD-10) Vitamin D deficiency ?E55.9 - Vitamin D deficiency, unspecified (ICD-10) Hypertriglyceridemia ?E78.1 - Pure hyperglyceridemia (ICD-10) Hypertension ?I10 - Essential (primary) hypertension (ICD-10) Surgical History (Updated 06/11/24 @ 00:13 by Savanna Amaya PA-C) History of Manfred-en-Y gastric bypass ?Z98.84 - Bariatric surgery status (ICD-10) Exam Narrative: Exam Narrative: Primary Survey: A- patent. Speaking clearly. Phonation normal. No stridor. B- breathing easily. Lung sounds clear and equal. Oxygen saturation normal on room air C- no active bleeding. Blood pressure stable. Symmetric pulses and cap refill in 4 extremities. D- alert and oriented to person and place but not date. He thinks it is April 05. He is initially crying and agitated. Sometimes his arcing with his and he is shouting at hurt and telling her to calm down (even though she is actually remarkably calm under the circumstances ). He is not aggressive or trying to hurt anybody but he is also willfully uncooperative with nurses trying to get his initial vitals. When I talk to him he is able to calm down a little bit but still quite agitated and not really able to participate history and physical. We administered droperidol Constitutional: Appears well-developed . Heavyset. Agitated, slurring his speech, but overall well-appearing. Does not appear toxic. HENT: Head: Atraumatic. No depressed skull fracture, Raccoon Eyes, Nuñez's sign, or hemotympanum. Face normal. TMs normal Nose: Nose normal. Mouth/Throat: Oral mucosa is clear and moist. no trismus. Pharynx normal. Tonsils symmetric. No tonsillar enlargement, erythema, or exudate. Eyes: Conjunctivae normal. EOM normal. Pupils equal, round, and reactive to light. No scleral icterus. Neck: Normal range of motion. Neck supple. No tracheal deviation present. No JVD Cardiovascular: Normal rate, regular rhythm. No gallop. No friction rub. No murmur heard. Symmetric radial artery pulses Pulmonary/Chest: Effort normal. No stridor. No respiratory distress. No wheezes. No rales. No rhonchi . No tenderness. Abdominal: Soft.No distension. No mass. No tenderness. No rebound. No guarding. Musculoskeletal: RUE: Normal range of motion. No tenderness. No deformity LUE: Normal range of motion. No tenderness. No deformity RLE: Normal range of motion. No edema. No tenderness. No deformity LLE: Normal range of motion. No edema. No tenderness. No deformity Neurological: Mental status normal. Attention normal. Alert and oriented x3. GCS 15. Memory normal. Speech fluent. Cognition normal. Cranial Nerves intact II-XII except I did not formally test gag or visual acuity. EOMI. Palate elevates symmetrically and tongue protrudes in the midline. Strength: 5/5 trapezius on the right and left 5/5 deltoid on the right and left 5/5 biceps on the right and left 5/5 triceps on the right and left 5/5 fitness specialist on the right and left 5/5 thumb opposition on the right and le ft 5/5 finger abduction on the right and le ft 5/5 hip flexors (L3) on the right and le ft 5/5 quadriceps (L4) on the right and lef t 5/5 tibialis anterior on the right and l eft 5/5 EHL (L5) on the right and left 5/5 gastrocnemius (S1) on the right and left 5/5 hamstring on the right and left Sensation intact to light touch in both upper extremities (C4-T1) Sensation intact to light touch in Both lower extremities (L4-S1). Not able to cooperate with [id number] or heel valderrama. When I have him lift his leg up in the air he lives at strongly. When I asked him to touch his heel to his contralateral knee moves his foot in a big outward [place] and then pushes his sole of his foot against his inner thigh. He does this symmetrically. He seems to not quite understand their request. When I repeat the request he still not able to accomplish the heel-valderrama test.. Skin: Skin is warm and dry. No rash noted. No pallor. Normal capillary refill. Psychiatric: Agitated, tearful, slightly slow speech. Has the behavior and mannerisms of someone who is intoxicated with alcohol, however his did not smell all call on him at home. We will pursue workup for other causes of altered mental status, also check alcohol level. Const: Vital Signs, click to edit/add: Vital Signs - 24 hr 06/10/24 20:41 06/10/24 20:50 06/10/24 20:51 Temperature 97.9 F Pulse Rate 83 Pulse Rate [Pulse Oximeter] 86 Respiratory Rate 20 Blood Pressure Blood Pressure [Ri ght Upper Arm] 120/76 Pulse Oximetry 95 95 94 Oxygen Delivery Me thod Room Air Room Air Oxygen Flow Rate 06/10/24 20:52 06/10/24 21:02 06/10/24 21:03 Temperature Pulse Rate 99 86 Pulse Rate [Pulse Oximeter] Respiratory Rate Blood Pressure 115/75 128/83 Blood Pressure [Ri ght Upper Arm] Pulse Oximetry 92 97 Oxygen Delivery Me thod Room Air Room Air Room Air Oxygen Flow Rate 06/10/24 21:15 06/10/24 21:17 06/10/24 21:33 Temperature Pulse Rate 73 70 67 Pulse Rate [Pulse Oximeter] Respiratory Rate 17 Blood Pressure 116/79 112/60 Blood Pressure [Ri ght Upper Arm] Pulse Oximetry 92 92 91 Oxygen Delivery Me thod Nasal Cannula Nasal Cannula Nasal Cannula Oxygen Flow Rate 1 1 1 06/10/24 21:45 06/10/24 21:47 06/10/24 22:02 Temperature Pulse Rate 75 70 Pulse Rate [Pulse Oximeter] Respiratory Rate 15 17 Blood Pressure 92/55 L 108/65 Blood Pressure [Ri ght Upper Arm] Pulse Oximetry 91 92 93 Oxygen Delivery Me thod Nasal Cannula Nasal Cannula Nasal Cannula Oxygen Flow Rate 1 1 1 06/10/24 22:21 06/10/24 23:00 06/10/24 23:19 Temperature Pulse Rate 70 76 98 Pulse Rate [Pulse Oximeter] Respiratory Rate 17 18 17 Blood Pressure 90/47 L 120/82 Blood Pressure [Ri ght Upper Arm] Pulse Oximetry 94 93 96 Oxygen Delivery Me thod Nasal Cannula Nasal Cannula Oxygen Flow Rate 1 1 Course Course ED Course: Patient arrived by EMS. Initial assessment obtained and code stroke activated. Stat noncontrast head CT is normal. Discussed with Stroke Neurology from [facility]. She asked us to obtain CT angiogram head and neck, she will do tele stroke consult. She and I agree that presentation is somewhat unusual and with no focal deficits, unclear last known well time (possibly 10:00 a.m. this morning), would not be a good candidate for thrombolytics. Recheck-calmer after droperidol. Somewhat drowsy. Did desat down to about 89% so we placed him on 2 L nasal cannula. Still arousable and answering questions. Follows commands. Much calmer. Reevaluation(s) Reevaluation #1: Recheck-neurology consult complete. Stroke Neurology not recommending thrombo lytics. Would recommend aspirin in case there is a small posterior fossa stroke happening here. She would recommend that we admit the patient here for medical monitoring to make sure his mental status totally clears and get an MRI tomorrow morning. Cause of the altered mental status is not clear. Could be delirium from COVID. It is possible that he had an unwitnessed seizure that caused him to fall at home and his confusion with gradual improvement was his postictal phase. He has no history of seizures before. Does not need immediate transfer for EEG evaluation. Consider possible meningitis/encephalitis and consider possible LP. His in discussion with Neurology we agree that it is reasonable to hold off for now given his absence of headache, no fever, normal white count, no stiff neck. Alcohol level came back negative. had been extremely worried that he had a relapse with alcohol, and was very pleased that he had not been drinking. And agrees with our plan to admit him for monitoring here in the hospital until he is neurologic status is back to normal. Sodium, blood sugar, kidney function, VBG are reassuring. PCR did come back positive for COVID. He was non not having any shortness of breath or hypoxia prior to administration of droperidol here in the ER. Has been symptomatic for several days. Will require pulmonary monitoring the hospital.. Discussed with hospitalist, who will admit for monitoring. Vital Signs Vital signs: Initial Vital Signs Temperature 97.9 F 06/10/24 20:41 Temperature Source Temporal Artery Scan 06/10/24 20:41 Pulse Rate 86 06/10/24 20:41 Respiratory Rate 20 06/10/24 20:41 Blood Pressure 120/76 06/10/24 20:41 Blood Pressure Mean 90 06/10/24 20:41 Blood Pressure Position Sitting 06/10/24 20:41 Pulse Oximetry 95 06/10/24 20:41 Oxygen Delivery Method Room Air 06/10/24 20:41 Vital Signs Temperature 97.9 F 06/10/24 20:41 Pulse Rate 86 06/10/24 20:41 Respiratory Rate 20 06/10/24 20:41 Blood Pressure 120/76 06/10/24 20:41 Pulse Oximetry 95 06/10/24 20:41 Oxygen Delivery Method Room Air 06/10/24 20:41 Temperature 97.9 F 06/10/24 20:41 Pulse Rate 98 06/10/24 23:19 Respiratory Rate 17 06/10/24 23:19 Blood Pressure 120/82 06/10/24 23:19 Pulse Oximetry 96 06/10/24 23:19 Oxygen Delivery Method Nasal Cannula 06/10/24 23:19 Oxygen Flow Rate 1 06/10/24 23:19 Medications Administered Medications: Discontinued Medications Generic Name Dose Route Start Last Admin Trade Name Freq PRN Reason Stop Dose Admin Aspirin 325 mg 06/10/24 22:34 06/10/24 23:23 Aspirin Ec 325 Mg Tablet PO 06/10/24 22:35 Not Given ONCE ONE Aspirin 324 mg 06/10/24 23:15 06/10/24 23:25 Aspirin 81 Mg Tab.Chew PO 06/10/24 23:16 324 mg ONCE ONE Administration Droperidol 2.5 mg 06/10/24 23:15 06/10/24 21:00 Droperidol 2.5 Mg/Ml Inj IV 06/10/24 23:16 2.5 mg ONCE ONE Administration Medical Decision Making Lab Data Labs: Lab Results 06/10/24 06/10/24 06/10/24 Range/Units 20:39 21:17 21:24 WBC 5.86 (4.50-11.00) K/uL RBC 5.49 (4.30-5.90) m/uL Hgb 16.8 (13.5-17.5) gm/dL Hct 48.3 (37.0-53.0) % MCV 88 (80-100) fL MCH 31 (26-34) pg MCHC 35 (32-36) gm/dL RDW Coeff of Tima 12.8 (11.5-15.5) % Plt Count 206 (140-440) K/uL Neut % (Auto) 44.5 (42.0-72.0) % Lymph % (Auto) 42.0 (20-44) % [place] % (Auto) 11.6 H (0.0-11.0) % Eos % (Auto) 1.2 (0.0-7.0) % Baso % (Auto) 0.2 (0.0-3.0) % Neut # (Auto) 2.61 (1.7-7.0) K/uL Lymph # (Auto) 2.46 (0.90-2.90) K/uL [place] # (Auto) 0.70 (0.00-0.90) K/UL Eos # (Auto) 0.07 (0.00-0.50) K/uL Baso # (Auto) 0.01 (0.00-0.30) K/uL Abs Immat Gran (auto) 0.03 (0.00-0.30) K/uL Imm/Tot Granulo (auto) 0.5 % INR 0.91 (0.91-1.10) APTT 27 (23-33) Seconds VBG pH 7.398 (7.32-7.43) VBG pCO2 38 L (40-50) mmHG VBG pO2 77.2 H (25-47) mmHG VBG HCO3 23 (21-28) mmol/L Sodium 142 (135-149) mmol/L Potassium 4.1 (3.6-5.1) mmol/L Chloride 107 (96-114) mmol/L Carbon Dioxide 21 (20-32) mmol/L Anion Gap 14 (7-15) mEq/L BUN 10 (7-30) mg/dL Creatinine 0.7 (0.5-1.5) mg/dL Estimated GFR 112 ml/min Glucose 135 H (60-115) mg/dL Calcium 8.8 (8.4-10.6) mg/dL Troponin I < 0.01 L (0.01-0.04) ng/mL Ethyl Alcohol 0.01 (0.01-0.03) % SARS-CoV-2 (PCR) (Negative) Influenza Type A (PCR) (Negative) Influenza Type B (PCR) (Negative) RSV (PCR) (Negative) 06/10/24 Range/Units 21:30 WBC (4.50-11.00) K/uL RBC (4.30-5.90) m/uL Hgb (13.5-17.5) gm/dL Hct (37.0-53.0) % MCV (80-100) fL MCH (26-34) pg MCHC (32-36) gm/dL RDW Coeff of Tima (11.5-15.5) % Plt Count (140-440) K/uL Neut % (Auto) (42.0-72.0) % Lymph % (Auto) (20-44) % [place] % (Auto) (0.0-11.0) % Eos % (Auto) (0.0-7.0) % Baso % (Auto) (0.0-3.0) % Neut # (Auto) (1.7-7.0) K/uL Lymph # (Auto) (0.90-2.90) K/uL [place] # (Auto) (0.00-0.90) K/UL Eos # (Auto) (0.00-0.50) K/uL Baso # (Auto) (0.00-0.30) K/uL Abs Immat Gran (auto) (0.00-0.30) K/uL Imm/Tot Granulo (auto) % INR (0.91-1.10) APTT (23-33) Seconds VBG pH (7.32-7.43) VBG pCO2 (40-50) mmHG VBG pO2 (25-47) mmHG VBG HCO3 (21-28) mmol/L Sodium (135-149) mmol/L Potassium (3.6-5.1) mmol/L Chloride (96-114) mmol/L Carbon Dioxide (20-32) mmol/L Anion Gap (7-15) mEq/L BUN (7-30) mg/dL Creatinine (0.5-1.5) mg/dL Estimated GFR ml/min Glucose (60-115) mg/dL Calcium (8.4-10.6) mg/dL Troponin I (0.01-0.04) ng/mL Ethyl Alcohol (0.01-0.03) % SARS-CoV-2 (PCR) POSITIVE SARS-CoV-2 A (Negative) Influenza Type A (PCR) Negative PCR FLU A (Negative) Influenza Type B (PCR) Negative PCR FLU B (Negative) RSV (PCR) Negative PCR RSV (Negative) Imaging Data CTA head an dneck: Attestation: I have reviewed the pertinent imaging results. Radiologist's impression: IMPRESSION: CTA head: No sign of large vessel occlusion or significant aneurysm. CTA neck: No sign of dissection or significant stenosis. CT scan - head: Attestation: I have reviewed the pertinent imaging results. Radiologist's impression: IMPRESSION: CTA head: No sign of large vessel occlusion or significant aneurysm. CTA neck: No sign of dissection or significant stenosis. Discharge Plan Discharge Clinical Impression: Altered mental status, Fall, COVID-19 Patient Disposition: Admitted As Observation
[2024-06-11] MEDS: 0.9 % SODIUM CHLORIDE 1000 ml 1,000 ML 125 ML IV (01:18)
[2024-06-11] MEDS: SODIUM CHLORIDE 0.9 % (FLUSH) 10 ML SYRINGE 5 ML IVF ×2 (01:18→10:01)
[2024-06-11 01:31] LABS: C Reactive Protein* < 0.5 mg/dL (0.5-1.0)
[2024-06-11 02:42] LABS: Vitamin B12* 569 pg/mL (243-894)
[2024-06-11 04:15] LABS: Appearance Urine Clear (Clear); Bilirubin Urine Negative (Negative); Blood Urine Negative (Negative); Color Urine Yellow (Yellow); Glucose Urine Negative (Negative); Ketones Urine Negative (Negative); Leukocyte Esterase Urine Negative (Negative); Nitrite Urine Negative (Negative); Protein Urine Negative (Negative); Specific Gravity Urine 1.025 (1.000-1.030); Urobilinogen Urine 0.2 (0.2-1.0); pH Urine 5.5 (5.0-8.5)
[2024-06-11 04:23] LABS: RBC Urine 0-2 (0-2); Squamous Epithelial Cell Urine Few (None-Few); WBC Urine 0-2 (0-5)
[2024-06-11 04:24] LABS: Amphetamine Screen Urine Negative (Negative); Barbiturate Screen Urine Negative (Negative); Benzodiazepines Screen Urine Negative (Negative); Cannabinoid Screen Urine Negative (Negative); Cocaine Screen Urine Negative (Negative); Methadone Screen Urine Negative (Negative); Methamphetamines Screen Urine Negative (Negative); Opiate Screen Urine Negative (Negative); Oxycodone Screen Urine Negative (Negative); Phencyclidine Screen Urine Negative (Negative); Tricyclic Antidepressant Urine Negative (Negative)
[2024-06-11 06:41] LABS: Hematocrit 47.2 % (37.0-53.0); Hemoglobin* 16.1 gm/dL (13.5-17.5); Mean Corpuscular HGB Conc 34 gm/dL (32-36); Mean Corpuscular Hemoglobin 30 pg (26-34); Mean Corpuscular Volume 89 fL (80-100); Platelet Count* 214 K/uL (140-440); Red Blood Count 5.31 m/uL (4.30-5.90); White Blood Count* 5.37 K/uL (4.50-11.00)
[2024-06-11 06:46] LABS: Slide Review Reflex No
[2024-06-11 07:06] LABS: Albumin* 4.4 g/dL (3.3-5.0); Chloride* 108 mmol/L (96-114); Sodium* 142 mmol/L (135-149)
[2024-06-11 07:08] LABS: Creatinine* 0.7 mg/dL (0.5-1.5); Est. Creatinine Clearance* 138.57; Estimated Glomerular Filt Rate 112 ml/min
[2024-06-11 07:09] LABS: Alanine Aminotransferase* 42 U/L (4-50); Alkaline Phosphatase* 87 U/L (40-150); Anion Gap 12 mEq/L (7-15); Aspartate Amino Transferase* 28 U/L (12-35); Bilirubin Total* 0.4 mg/dL (0.1-1.5); Blood Urea Nitrogen* 12 mg/dL (7-30); Carbon Dioxide* 22 mmol/L (20-32); Glucose* 118 mg/dL (60-115); Total Protein* 7.1 g/dL (6.0-8.3)
[2024-06-11 07:10] LABS: Calcium* 8.2 mg/dL (8.4-10.6)
--- NOTE | 2024-06-11 07:31 | PC.NURSE ---
Pt is alert and oriented x3, pt has equal strength in upper and lower bilateral extremities, facial movement have been controlled and symmetrical.?Afebrile. Pt denies pain, chest pain, SOB, N/V. Pt is up SBA, voiding, and tolerating a regular diet. at bed side.
[2024-06-11 07:43] LABS: Cholesterol* 146 mg/dL (90-199); HDL Cholesterol* 44 mg/dL (>=40); LDL Cholesterol Calculated 54 mg/dL (<100); Triglycerides* 238 mg/dL (40-149)
[2024-06-11 07:45] LABS: Hemoglobin A1C* 5.5 % (0-5.6)
[2024-06-11] MEDS: ASPIRIN 81 MG TAB.CHEW 324 MG PO (10:00)
[2024-06-11] MEDS: LORazepam 1 MG TABLET PO (10:50)
--- NOTE | 2024-06-11 13:45 | P.DS_ITS ---
DS: Providers Provider Date Seen: 06/11/24 Date of admission: 06/11/24 00:09 Primary care physician: Rosie Padilla PA-C Admitting Clinician: Vale Mccall MD Consults: Therapies, Stroke Neurology Attending Physician on discharge: Danielle Marsh MD Date of Discharge: 06/11/24 DS: Diagnosis Discharge Diagnosis (1) Syncope: Status: Acute Problem details: -occurred approximately 1930 on 06/10; unresponsive after the fall. No incontinence. Slurred speech. Combative. - reports previous syncopal episode in 2023 with limited outpatient workup -CT head without acute intracranial abnormalities -CTA head/neck with no sign of large vessel occlusion or significant aneurysm, no sign of dissection or significant stenosis -ED provider discussed with Dr. Peterson, Teleneurology, recommending admission with further work up -reassuring labs, telemetry, neurochecks -unable to complete MRI 2/2 anxiety, TTE completed, formal results pending -back to baseline 06/11/24 and requesting d/c home on Zio patch with Neurology referral, no therapy needs identified (2) Altered mental status: Status: Acute Problem details: -slurred speech after waking ( reports this has happened maybe a handful of times in the past year), no incontinence -combative in ED, requiring droperidol -back to baseline hospital day 1 without evidence for metabolic derangement (possible encephalopathy 2/2 COVID infection) -outpatient Neurology f/u (3) COVID-19: Status: Acute Problem details: -denies recent cough, congestion, fevers. One day history of diarrhea (suspected norovirus from child) -no hypoxia. On supplemental oxygen following droperidol administration in ED -Paxlovid - sent to pharmacy on file -symptomatic cares (4) Hypertension: Status: Acute Problem details: -allow for permissive hypertension -held home Lisinopril during stay (5) Hypertriglyceridemia: Status: Acute Problem details: -LDL 54 (6) KERLINE (obstructive sleep apnea): Status: Acute Problem details: -CPAP DS: Summary Hospital Course Hospital Course: From admission H&P: Cem Katz is a 48 year old male past medical history significant for hypertension, hyperlipidemia, KERLINE on CPAP, anemia, PTSD, vitamin B12 and D deficiencies is admitted to the medical floor from the ED for further workup syncope and altered mental status. Patient is seen with at bedside. Awake, alert but does appear tired and reports feeling the same. Most of his answers are ?no? at this time but is able to elaborate when needed. does assist with answering some of these questions. Patient is reported to be last known well around 10:00 a.m. earlier this morning. 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 Reports feeling his normal self. His arrived home around 5:45 p.m. and found him sleeping in his chair without his CPAP on. When she woke him he noticed he had some slurred speech. She does tell me this has happened a handful of times over the past year. Patient tells me he felt like maybe he had a sinus headache so got up to the bathroom and was walking fine. At approximately 7:30 p.m. he was noticed to be unsteady on his feet and was heard to fall over. Found unresponsive. Noted to be perseverating in the ED. combative in the ED, received IV droperidol. reports he has had a previous syncopal episode in June/July of 2023. He had minimal outpatient workup at that time. His tells me his iron and B12 levels were off. No workup since that time. Currently, patient denies headache or dizziness. Denies recent fevers or chills over the last few days. Denies recent chest pain or shortness of breath. Denies abdominal pain or vomiting. He did have diarrhea on Saturday. His daughter had been vomiting previously. His suspects norovirus. Previous alcohol use. Sober since January. Nonsmoker. Denies new or recent medication changes. PCP is ERICA Waller. During hospital stay, patient's mental status normalized, he was requesting discharge home on hospital day 1. No therapy needs identified. He was unable to complete an MRI 2/2 anxiety. TTE results pending at discharge. He will go home on a full strength aspirin with close PCP and outpatient Neurology followup. Status at Discharge Functional status at discharge: independent ambulation Overall status at discharge: patient is progressing back to baseline Time Spent with Patient Time attestation: Total time spent providing and/or coordinating discharge services: Time spent: Greater than 30 minutes Specific discharge activities: Medication reconciliation, patient and education, multidisciplinary team discussion Exam Narrative: Exam Narrative: GEN: Alert and oriented, nontoxic HEENT: EOMIs bilaterally, no scleral icterus CV: RRR, No concerning murmurs R: LCTA bilaterally without concerning wheezing Ext: wwp, no concerning edema Skin: No concerning skin lesions or rashes on exposed skin Neuro: Nonfocal, no resting tremor, gait observed in room and wnl Psych: Appropriate Const: Vital Signs, click to edit/add: Vital Signs - 24 hr 06/10/24 20:41 06/10/24 20:50 06/10/24 20:51 Temperature 97.9 F Pulse Rate 83 Pulse Rate [Pulse Oximeter] 86 Respiratory Rate 20 Blood Pressure Blood Pressure [Le ft Arm] Blood Pressure [Ri ght Arm] Blood Pressure [Ri ght Upper Arm] 120/76 Pulse Oximetry 95 95 94 Oxygen Delivery Me thod Room Air Room Air Oxygen Flow Rate 06/10/24 20:52 06/10/24 21:02 06/10/24 21:03 Temperature Pulse Rate 99 86 Pulse Rate [Pulse Oximeter] Respiratory Rate Blood Pressure 115/75 128/83 Blood Pressure [Le ft Arm] Blood Pressure [Ri ght Arm] Blood Pressure [Ri ght Upper Arm] Pulse Oximetry 92 97 Oxygen Delivery Me thod Room Air Room Air Room Air Oxygen Flow Rate 06/10/24 21:15 06/10/24 21:17 06/10/24 21:33 Temperature Pulse Rate 73 70 67 Pulse Rate [Pulse Oximeter] Respiratory Rate 17 Blood Pressure 116/79 112/60 Blood Pressure [Le ft Arm] Blood Pressure [Ri ght Arm] Blood Pressure [Ri ght Upper Arm] Pulse Oximetry 92 92 91 Oxygen Delivery Me thod Nasal Cannula Nasal Cannula Nasal Cannula Oxygen Flow Rate 1 1 1 06/10/24 21:45 06/10/24 21:47 06/10/24 22:02 Temperature Pulse Rate 75 70 Pulse Rate [Pulse Oximeter] Respiratory Rate 15 17 Blood Pressure 92/55 L 108/65 Blood Pressure [Le ft Arm] Blood Pressure [Ri ght Arm] Blood Pressure [Ri ght Upper Arm] Pulse Oximetry 91 92 93 Oxygen Delivery Me thod Nasal Cannula Nasal Cannula Nasal Cannula Oxygen Flow Rate 1 1 1 06/10/24 22:21 06/10/24 23:00 06/10/24 23:19 Temperature Pulse Rate 70 76 98 Pulse Rate [Pulse Oximeter] Respiratory Rate 17 18 17 Blood Pressure 90/47 L 120/82 Blood Pressure [Le ft Arm] Blood Pressure [Ri ght Arm] Blood Pressure [Ri ght Upper Arm] Pulse Oximetry 94 93 96 Oxygen Delivery Me thod Nasal Cannula Nasal Cannula Oxygen Flow Rate 1 1 06/11/24 00:17 06/11/24 00:17 06/11/24 00:51 Temperature 97.8 F Pulse Rate 66 Pulse Rate [Pulse Oximeter] 93 Respiratory Rate 16 Blood Pressure Blood Pressure [Le ft Arm] Blood Pressure [Ri ght Arm] 122/89 Blood Pressure [Ri ght Upper Arm] Pulse Oximetry 93 93 Oxygen Delivery Me thod Room Air Oxygen Flow Rate 06/11/24 00:51 06/11/24 03:49 06/11/24 07:11 Temperature 97.9 F Pulse Rate 75 Pulse Rate [Pulse Oximeter] 76 Respiratory Rate 16 18 Blood Pressure Blood Pressure [Le ft Arm] Blood Pressure [Ri ght Arm] 155/95 H Blood Pressure [Ri ght Upper Arm] Pulse Oximetry 96 Oxygen Delivery Me thod Room Air Room Air Oxygen Flow Rate 06/11/24 08:01 06/11/24 08:09 06/11/24 08:09 Temperature 98.7 F Pulse Rate Pulse Rate [Pulse Oximeter] 91 90 90 Respiratory Rate 12 12 Blood Pressure Blood Pressure [Le ft Arm] Blood Pressure [Ri ght Arm] 181/115 H 141/84 H Blood Pressure [Ri ght Upper Arm] Pulse Oximetry 92 Oxygen Delivery Me thod Room Air Oxygen Flow Rate 06/11/24 10:00 06/11/24 10:52 Temperature 98 F Pulse Rate Pulse Rate [Pulse Oximeter] 90 90 Respiratory Rate 14 Blood Pressure Blood Pressure [Le ft Arm] 160/103 H Blood Pressure [Ri ght Arm] Blood Pressure [Ri ght Upper Arm] Pulse Oximetry 94 Oxygen Delivery Me thod Room Air Oxygen Flow Rate DS: Data Data Completed and Pending Labs on day of discharge: Labs from last 24 hours 06/11/24 06/11/24 06/11/24 06:10 04:00 00:17 WBC 5.37 RBC 5.31 Hgb 16.1 Hct 47.2 MCV 89 MCH 30 MCHC 34 RDW Coeff of Tima Plt Count 214 Neut % (Auto) Lymph % (Auto) [place] % (Auto) Eos % (Auto) Baso % (Auto) Neut # (Auto) Lymph # (Auto) [place] # (Auto) Eos # (Auto) Baso # (Auto) Abs Immat Gran (auto) Imm/Tot Granulo (auto) INR APTT VBG pH VBG pCO2 VBG pO2 VBG HCO3 Sodium 142 Potassium 4.0 Chloride 108 Carbon Dioxide 22 Anion Gap 12 BUN 12 Creatinine 0.7 Estimated Creat Clear 138.57 Estimated GFR 112 Glucose 118 H Hemoglobin A1c 5.5 Calcium 8.2 L Total Bilirubin 0.4 AST 28 ALT 42 Alkaline Phosphatase 87 Troponin I C-Reactive Protein Total Protein 7.1 Albumin 4.4 Triglycerides 238 H Cholesterol 146 LDL Cholesterol, Calc 54 HDL Cholesterol 44 Vitamin B12 TSH Urine Color Yellow Urine Appearance Clear Urine pH 5.5 Ur Specific [place] 1.025 Urine Protein Negative Urine Glucose (UA) Negative Urine Ketones Negative Urine Blood Negative Urine Nitrite Negative Urine Bilirubin Negative Urine Urobilinogen 0.2 Ur Leukocyte Esterase Negative Urine RBC 0-2 Urine WBC 0-2 Ur Squamous Epith Cells Few Urine Bacteria None Urine Opiates Screen Negative Ur Oxycodone Screen Negative Urine Methadone Screen Negative Ur Barbiturates Screen Negative U Tricyclic Antidepress Negative Ur Phencyclidine Scrn Negative Ur Amphetamines Screen Negative U Methamphetamines Scrn Negative U Benzodiazepines Scrn Negative Urine Cocaine Screen Negative U Marijuana (THC) Screen Negative Ur Drug Screen Comment See Note Ethyl Alcohol SARS-CoV-2 (PCR) Influenza Type A (PCR) Influenza Type B (PCR) RSV (PCR) Lab Acknowledgement Test Added 06/10/24 06/10/24 06/10/24 21:30 21:24 21:17 WBC RBC Hgb Hct MCV MCH MCHC RDW Coeff of Tima Plt Count Neut % (Auto) Lymph % (Auto) [place] % (Auto) Eos % (Auto) Baso % (Auto) Neut # (Auto) Lymph # (Auto) [place] # (Auto) Eos # (Auto) Baso # (Auto) Abs Immat Gran (auto) Imm/Tot Granulo (auto) INR 0.91 APTT 27 VBG pH 7.398 VBG pCO2 38 L VBG pO2 77.2 H VBG HCO3 23 Sodium Potassium Chloride Carbon Dioxide Anion Gap BUN Creatinine Estimated Creat Clear Estimated GFR Glucose Hemoglobin A1c Calcium Total Bilirubin AST ALT Alkaline Phosphatase Troponin I C-Reactive Protein Total Protein Albumin Triglycerides Cholesterol LDL Cholesterol, Calc HDL Cholesterol Vitamin B12 TSH Urine Color Urine Appearance Urine pH Ur Specific [place] Urine Protein Urine Glucose (UA) Urine Ketones Urine Blood Urine Nitrite Urine Bilirubin Urine Urobilinogen Ur Leukocyte Esterase Urine RBC Urine WBC Ur Squamous Epith Cells Urine Bacteria Urine Opiates Screen Ur Oxycodone Screen Urine Methadone Screen Ur Barbiturates Screen U Tricyclic Antidepress Ur Phencyclidine Scrn Ur Amphetamines Screen U Methamphetamines Scrn U Benzodiazepines Scrn Urine Cocaine Screen U Marijuana (THC) Screen Ur Drug Screen Comment Ethyl Alcohol SARS-CoV-2 (PCR) POSITIVE SARS-CoV-2 A Influenza Type A (PCR) Negative PCR FLU A Influenza Type B (PCR) Negative PCR FLU B RSV (PCR) Negative PCR RSV Lab Acknowledgement 06/10/24 20:39 WBC 5.86 RBC 5.49 Hgb 16.8 Hct 48.3 MCV 88 MCH 31 MCHC 35 RDW Coeff of Tima 12.8 Plt Count 206 Neut % (Auto) 44.5 Lymph % (Auto) 42.0 [place] % (Auto) 11.6 H Eos % (Auto) 1.2 Baso % (Auto) 0.2 Neut # (Auto) 2.61 Lymph # (Auto) 2.46 [place] # (Auto) 0.70 Eos # (Auto) 0.07 Baso # (Auto) 0.01 Abs Immat Gran (auto) 0.03 Imm/Tot Granulo (auto) 0.5 INR APTT VBG pH VBG pCO2 VBG pO2 VBG HCO3 Sodium 142 Potassium 4.1 Chloride 107 Carbon Dioxide 21 Anion Gap 14 BUN 10 Creatinine 0.7 Estimated Creat Clear Estimated GFR 112 Glucose 135 H Hemoglobin A1c Calcium 8.8 Total Bilirubin AST ALT Alkaline Phosphatase Troponin I < 0.01 L C-Reactive Protein < 0.5 L Total Protein Albumin Triglycerides Cholesterol LDL Cholesterol, Calc HDL Cholesterol Vitamin B12 569 TSH 2.220 Urine Color Urine Appearance Urine pH Ur Specific [place] Urine Protein Urine Glucose (UA) Urine Ketones Urine Blood Urine Nitrite Urine Bilirubin Urine Urobilinogen Ur Leukocyte Esterase Urine RBC Urine WBC Ur Squamous Epith Cells Urine Bacteria Urine Opiates Screen Ur Oxycodone Screen Urine Methadone Screen Ur Barbiturates Screen U Tricyclic Antidepress Ur Phencyclidine Scrn Ur Amphetamines Screen U Methamphetamines Scrn U Benzodiazepines Scrn Urine Cocaine Screen U Marijuana (THC) Screen Ur Drug Screen Comment Ethyl Alcohol 0.01 SARS-CoV-2 (PCR) Influenza Type A (PCR) Influenza Type B (PCR) RSV (PCR) Lab Acknowledgement Discharge Plan Discharge Disposition: Home, Self-Care Date of Admission: 06/11/24 00:09 Attending Provider on Discharge: Danielle Marsh Primary Care Provider: Rosie Padilla Condition: Improved Anticipated Discharge Date/Time: 06/11/24 11:39 Discharge Medications: New Paxlovid 300 mg (150 mg x 2)-100 mg tablets,dose pack See Rx Instructions .ROUTE .COMPLEX Qty: 30 0RF Rx Instructions: take TWO 150 mg tablets of nirmatrelvir with ONE 100 mg tablet of ritonavir twice daily for 5 days aspirin [Children's Aspirin] 81 mg Tablet,Chewable 324 mg PO DAILY Qty: 30 0RF Continued lisinopril 10 mg tablet 10 mg PO HS Rx Instructions: Take 1 Tablet (10 mg) by mouth once daily. ferrous sulfate 325 mg (65 mg iron) tablet,delayed release (DR/EC) 325 mg PO BID Rx Instructions: Take 1 Tablet (325 mg) by mouth two times daily with meals. Discharge Orders: Discharge Order (Routine); Ordered 06/11/24 Ordered By: Danielle Marsh Additional Instructions: Add in 324mg of Aspirin daily (4 baby aspirin, take with food to minimize stomach upset), finish course of Paxlovid. No changes to home medications. See Rosie and Neurology as scheduled. Activity Level: Activity as Tolerated Discharge Diet: Regular Follow Up Appointments: [facility] [Provider Group] (Neurology, f/u for TIA symptoms (had a teleneuro visit on 06/10/24)) Rosie Padilla PA-C [Primary Care Provider] - (7-10 days, hospital d/c followup) Forms: [employer] Info Instructions
[2024-06-11] MEDS: PERFLUTREN LIPID MICROSPHERES 2 ML VIAL IVP (15:39)
--- NOTE | 2024-06-11 16:39 | PC.NURSE ---
Discharge: Patient pleasant and cooperative. Patient vitally stable, lungs diminished, BS WNL, IV's removed, catheter intact. Patient denies pain. Patient SBA/independent in room. Patient tolerating regular diet, and urinating. Tele=NSR. Zio patch applied and education given. Patient signed belongings sheet and discharge form signed. All questions answered regarding discharge and zio patch. Patient left the floor by foot to home at [id number].
== END 2024-06-11 16:36 | disposition home or self-care (01) ==
LOC: ED 06-11 00:05 → MEDSURG 06-11 00:10
PROVIDERS: Physician Assistant; Admitting Provider Family Medicine; Emergency Provider Emergency Medicine; PCP Student in an Organized Health Care Education/Training Program; Visit Provider Family Medicine
DX: U07.1 COVID-19 (principal); R41.82 Altered mental status, unspecified; R55 Syncope and collapse; E78.1 Pure hyperglyceridemia; I10 Essential (primary) hypertension; G47.33 Obstructive sleep apnea (adult) (pediatric)
CPT/HCPCS: 36415; 70450; 70496; 70498; 80048; 80053; 80061; 80306; 81001; 82077; 82607; 82803; 83036; 84443; 84484; 85025; 85027; 85610; 85730; 86140; 87631; 93005; 93246; 93306; 94761; 96360; 96361; 96374; 96375; 97161; 97165; 99284; 99285; 99291; A9270; G0378; J1790; J7030; Q9957; Q9967